=== PATIENT | female | born 1995 | race Caucasian/White ===

== ENCOUNTER 2023-09-07 09:47 | Outpatient (CLI) | payer MEDICAID, SELFPAY ==
--- NOTE | 2023-09-07 09:45 | CRLHL7_ITS ---
For Patients: As a result of the Century Cures Act, medical imaging exams and procedure reports are released immediately into your electronic medical record. You may view this report before your referring provider. If you have questions, please contact your health care provider. 3rd TRIMESTER TWIN GROWTH INDICATION: Third trimester scan, evaluate growth in a twin gestation. COMPARISON: Outside study dated 08/13/2023 TECHNIQUE: Real-time grayscale imaging of the twins was performed as well as color Doppler and spectral Doppler analysis of the umbilical arteries. FINDINGS: Sonographic imaging demonstrates a living twin intrauterine gestation. Twin A demonstrates a regular cardiac rate of 142 beats per minute. Twin A has a vertex position, maternal right. The placenta lies anterior. Amniotic fluid volume appears normal and the largest fluid pocket measures 5.5 cm. The estimated weight is 1330 gm which lies at the 12th percentile. BPD 38th percentile. HC 15th percentile. AC 12th percentile. FL 16 percentile. The HC/AC ratio measures 1.12 range (0.98-1.20). There is adequate diastolic blood flow within the umbilical artery. The S/D ratio measures 2.8. Normal gross body movements, tone and respiratory activity. Sonographic gestational age 29 weeks 3 days and sonographic due date 11/20/2023. Previously noted velamentous cord insertion not well visualized on today`s exam. Twin B demonstrates a regular cardiac rate of 145 beats per minute. Twin B has a breech position, maternal left. The placenta lies anterior. Amniotic fluid volume appears normal and the largest fluid pocket measures 6.9 cm. The estimated weight is 1240 gm which lies at the 5th percentile. BPD 28th percentile. HC 14th percentile. AC 5th percentile. FL 7th percentile. The HC/AC ratio measures 1.15 range (0.99-1.21). There is adequate diastolic blood flow within the umbilical artery. The S/D ratio measures 3.1. Normal gross body movements, tone and respiratory activity. Sonographic gestational age 29 weeks 1 day and sonographic due date of 08/23/2023. Marginal cord insertion previously mention is not well-visualized on the current study. IMPRESSION: Twin A growth at 12th percentile, previously at the 19th percentile. Twin B growth at the 5th percentile, previously 15th percentile. 03/17 biophysical profile bilaterally. Dictated by Vincent Santos MD @ 09/07/2023 12:26:23 PM (Electronically Signed)
== END 2023-09-07 09:48 | disposition home or self-care (01) ==
PROVIDERS: Visit Provider Obstetrics & Gynecology
DX: O30.003 Twin pregnancy, unspecified number of placenta and unspecified number of amniotic sacs, third trimester (principal)
CPT/HCPCS: 76816; 76819; 76820

== ENCOUNTER 2023-09-17 09:00 | Outpatient (CLI) | payer MEDICAID, SELFPAY ==
--- NOTE | 2023-09-17 09:15 | CRLHL7_ITS ---
For Patients: As a result of the Century Cures Act, medical imaging exams and procedure reports are released immediately into your electronic medical record. You may view this report before your referring provider. If you have questions, please contact your health care provider. INDICATION: Twins COMPARISON: 09/07/2023 TECHNIQUE: Real time magallon scale imaging of the twin was performed as well as color Doppler and spectral Doppler analysis of the umbilical artery. Without non-stress testing. FINDINGS: Sonographic imaging demonstrates a twin living intrauterine gestation. TWIN A: Fetus demonstrates a regular cardiac rate of 144 beats per minute. Fetus has a vertex maternal right position. The umbilical artery demonstrates adequate diastolic blood flow. The S/D ratio measures 2.6. The amniotic fluid volume appears normal and there is a single deepest pocket measurement of 3.1 cm. The fetus was active and demonstrated normal breathing movements. There was normal flexion and extension of the trunk and extremities. TWIN B: Fetus demonstrates a regular cardiac rate of 155 beats per minute. Fetus has a breech maternal left position. The umbilical artery demonstrates adequate diastolic blood flow. The S/D ratio measures 2.9. The amniotic fluid volume appears normal and there is a single deepest pocket measurement of 4.1 cm. The fetus was active and demonstrated normal breathing movements. There was normal flexion and extension of the trunk and extremities. IMPRESSION: TWIN A: Normal biophysical profile score of 8 out of 8. TWIN B: Normal biophysical profile score of 8 out of 8. Dictated by Vincent Santos MD @ 09/17/2023 1:47:02 PM (Electronically Signed)
== END 2023-09-17 09:01 | disposition home or self-care (01) ==
LOC: US 09:01
PROVIDERS: Visit Provider Obstetrics & Gynecology
DX: O30.049 Twin pregnancy, dichorionic/diamniotic, unspecified trimester (principal)
CPT/HCPCS: 76819; 76820

== ENCOUNTER 2023-09-21 09:19 | Outpatient (CLI) | payer MEDICAID, SELFPAY ==
--- NOTE | 2023-09-21 11:00 | US_ITS ---
INDICATION: DIAMNIOTIC/DICHORIONIC TWIN GESTATION. ULTRASOUND BIOPHYSICAL PROFILE WITH UMBILICAL ARTERY DOPPLER FOR BOTH TWINS. COMPARISON: 09/17/2023. TECHNIQUE: GRAYSCALE ULTRASOUND BIOPHYSICAL PROFILE BOTH FETUS IS. NONSTRESS TESTING. COLOR DOPPLER EVALUATION OF THE CORD. FINDINGS: TWIN A: NORMAL GROSS BODY MOVEMENTS, TONE AND RESPIRATORY ACTIVITY. AMNIOTIC FLUID IS NORMAL WITH SINGLE DEEPEST POCKET 5.3 CM. HEART RATE 134 BEATS PER MINUTE. POSITION MATERNAL LEFT BREECH. PLACENTA ANTERIOR. UMBILICAL ARTERY DOPPLER SD RATIO 2.7. TWIN B: NORMAL GROSS BODY MOVEMENTS, TONE AND RESPIRATORY ACTIVITY. ANTERIOR PLACENTA. HEART RATE 141 BEATS PER MINUTE. SINGLE DEEPEST POCKET 4.2 CM. VERTEX POSITION, MATERNAL RIGHT. UMBILICAL ARTERY SD RATIO 2.4. IMPRESSION: BIOPHYSICAL PROFILE 03/17 REGARDING BOTH FETUS IS. NORMAL END- DIASTOLIC VELOCITIES.
== END 2023-09-21 09:20 | disposition home or self-care (01) ==
LOC: US 09:19
PROVIDERS: Visit Provider Obstetrics & Gynecology
DX: O30.049 Twin pregnancy, dichorionic/diamniotic, unspecified trimester (principal)
CPT/HCPCS: 76819; 76820

== ENCOUNTER 2023-09-28 09:16 | Outpatient (CLI) | payer MEDICAID, SELFPAY ==
--- NOTE | 2023-09-28 09:15 | US_ITS ---
Final Report Patient: JESSA KAUFFMAN Facility:?[facility] Patient ID:?[id number] Site Patient ID:?[id number]. Site :?1995 Study:?US OB Pelvis OB BPP W/ UA DOPPLER-09/28/2023 11:35:21 AM Ordering Physician:?NAMITA MANCILLA M.D. Final Report: INDICATION: DI-DI TWINS COMPARISON: 09/21/2023 TECHNIQUE: Real time magallon scale imaging of the twins was performed as well as color Doppler and spectral Doppler analysis of the umbilical artery. Without non-stress testing. FINDINGS: Sonographic imaging demonstrates a twin living intrauterine gestation. TWIN A: Fetus demonstrates a regular cardiac rate of 165 beats per minute. Fetus has a vertex position. The umbilical artery demonstrates adequate diastolic blood flow. The S/D ratio measures 2.6. The amniotic fluid volume appears normal and there is a single deepest pocket measurement of 2.4 cm. The fetus was active and demonstrated normal breathing movements. There was normal flexion and extension of the trunk and extremities. TWIN B: Fetus demonstrates a regular cardiac rate of 149 beats per minute. Fetus has a breech position. The umbilical artery demonstrates adequate diastolic blood flow. The S/D ratio measures 2.6. The amniotic fluid volume appears normal and there is a single deepest pocket measurement of 4.9 cm. The fetus was active and demonstrated normal breathing movements. There was normal flexion and extension of the trunk and extremities. IMPRESSION: Twin A: Normal biophysical profile score of 8 out of 8. Twin B: Normal biophysical profile score of 8 out of 8. Dictated by Vincent Santos MD @ 09/29/2023 6:14:35 AM (Electronic Signature
== END 2023-09-28 09:17 | disposition home or self-care (01) ==
LOC: US 09:17
PROVIDERS: Visit Provider Obstetrics & Gynecology
DX: O30.049 Twin pregnancy, dichorionic/diamniotic, unspecified trimester (principal)
CPT/HCPCS: 76819; 76820

== ENCOUNTER 2023-10-08 13:02 | Outpatient (CLI) | payer MEDICAID, SELFPAY ==
--- NOTE | 2023-10-08 13:00 | US_ITS ---
Patient: JESSA KAUFFMAN Facility:?[facility] Patient ID:?[id number] Site Patient ID:?[id number]. Site :?1995 Study:?US-OB Pelvis TWIN BPP-10/08/2023 1:47:15 PM Ordering Physician:COOPER MANCILLA Final Report: INDICATION: Dichorionic diamniotic twins with IUGR TECHNIQUE: Conventional transabdominal two-dimensional magallon-scale ultrasound examination. COMPARISON: 09/28/2023 FINDINGS: There is are living dichorionic diamniotic twins with gestational age of 34 weeks 3 days by LMP and EDC of 11/16/2023. Twin A: Cephalic lie, on maternal right. The heart rate is measured at 141 beats per minute and the rhythm appears regular. The biophysical profile score is 8/8. The placenta is anterior. There is no evidence of previa. The amniotic fluid volume is within normal limits with single deepest pocket of 4.3 cm. Twin B: Breech lie, on maternal left. The heart rate is measured at 150 beats per minute and the rhythm appears regular. The biophysical profile score is 8/8. The placenta is anterior. There is no evidence of previa. The amniotic fluid volume is within normal limits with single deepest pocket 4.5 cm. IMPRESSION: 1. Living dichorionic diamniotic twins with gestational age of 34 weeks 3 days by LMP and EDC of 11/16/2023. 2. Biophysical profile score for both babies is 8/8. Dictated by Yohannes Vergara MD @ 10/09/2023 7:48:23 AM Signed by:?Yohannes Vergara MD @10/09/2023 7:48:23 AM (Electronic Signature)
== END 2023-10-08 13:03 | disposition home or self-care (01) ==
LOC: US 13:02
PROVIDERS: Visit Provider Obstetrics & Gynecology
DX: O30.033 Twin pregnancy, monochorionic/diamniotic, third trimester (principal); Z3A.34 34 weeks gestation of pregnancy
CPT/HCPCS: 76819

== ENCOUNTER 2023-10-13 14:19 | Outpatient (CLI) | payer MEDICAID, SELFPAY ==
[2023-10-14 15:50] LABS: Strep B DNA Probe Negative (Negative)
[2023-10-15 03:53] LABS: Strep B Susceptibility Needed? No
== END 2023-10-13 14:20 | disposition home or self-care (01) ==
LOC: NFLDREF 14:20
PROVIDERS: Visit Provider Obstetrics & Gynecology
DX: O30.043 Twin pregnancy, dichorionic/diamniotic, third trimester (principal); Z3A.35 35 weeks gestation of pregnancy
CPT/HCPCS: 76819; 76820; 87081; 87653

== ENCOUNTER 2023-10-15 10:43 | Outpatient (CLI) | payer MEDICAID, SELFPAY ==
--- NOTE | 2023-10-15 10:45 | US_ITS ---
Patient: JESSA KAUFFMAN Facility:?[facility] Patient ID:?[id number] Site Patient ID:?[id number]. Site :?1995 Study:?US-OB Pelvis BPP TWINS-10/15/2023 12:24:47 PM Ordering Physician:?Roxi Hughes Final Report: INDICATION: DI/DI TWINS HX IUGR COMPARISON: 10/13/2023 TECHNIQUE: Real time magallon scale imaging of the twin was performed as well as color Doppler and spectral Doppler analysis of the umbilical artery. Without non-stress testing. FINDINGS: Sonographic imaging demonstrates a twin living intrauterine gestation. TWIN A: Fetus demonstrates a regular cardiac rate of 142 beats per minute. Fetus has a vertex position. The umbilical artery demonstrates adequate diastolic blood flow. The S/D ratio measures 2.5. The amniotic fluid volume appears normal and there is a single deepest pocket measurement of 5.6 cm. The fetus was active and demonstrated normal breathing movements. There was normal flexion and extension of the trunk and extremities. TWIN B: Fetus demonstrates a regular cardiac rate of 149 beats per minute. Fetus has a breech position. The umbilical artery demonstrates adequate diastolic blood flow. The S/D ratio measures 1.9. The amniotic fluid volume appears normal and there is a single deepest pocket measurement of 7.2 cm. The fetus was active and demonstrated normal breathing movements. There was normal flexion and extension of the trunk and extremities. IMPRESSION: TWIN A: Normal biophysical profile score of 8 out of 8. TWIN B: Normal biophysical profile score of 8 out of 8. Dictated by Vincent Santos MD @ 10/15/2023 12:36:46 PM Signed by:?Vincent Santos MD @10/15/2023 12:36:46 PM (Electronic Signature)
== END 2023-10-15 10:44 | disposition home or self-care (01) ==
LOC: US 10:43
PROVIDERS: Visit Provider Obstetrics & Gynecology
DX: O30.043 Twin pregnancy, dichorionic/diamniotic, third trimester (principal); Z3A.35 35 weeks gestation of pregnancy
CPT/HCPCS: 76819; 76820

== ENCOUNTER 2023-10-22 10:28 | Inpatient (IN) | payer MEDICAID, SELFPAY ==
[2023-10-22] VITALS (8 sets, daily range): BP systolic 129–134; BP diastolic 61–75; PULSE 67–115; RESP 16; TEMP 36.6–37.2; O2SAT 98; BMI 30.1
[2023-10-22 10:01] LABS: Amnisure Rom* POSITIVE
--- NOTE | 2023-10-22 12:38 | P.OBHP_ITS ---
OB - H&P: HPI Labor/Induction History of Present Illness Time Seen by Provider: 10:45 Date Seen: 10/22/23 Chief Complaint: Maida is a 28 year old 3 para 1011 at 36 and 3/7 weeks gestation by LMP consistent with 1st trimester ultrasound, who presents with PROM at 6:00 a.m. this morning with clear amniotic fluid. Her has been complicated by / twins with twin a having a velamentous insertion of the cord, twin B having a marginal insertion of the cord in both twins having severe growth restriction at 3% or less as of 10/19/2023. Twin a also had elevated umbilical cord S/D ratio on 10/19/2023 of 3.43 (95% = 3.41). Twin a measured 2091 g, 4 lb 9 oz, twin B measured 2102 g 4 lb 10 oz with a 1% discordance. Twin B umbilical cord S/D ratio was 2.9. This ultrasound was performed at the [facility] in their [facility] office. See ultrasound results below. The patient states that she felt a pop and then had a a large gush of clear fluid this morning at 6:00 a.m. she called our clinic to see where she should go and we had recommended that she return to the [facility] as we watch it she had transferred care there but she presented to the [place] labor and delivery triage area. She declined Pitocin until 2:00 p.m. which is 8 hours after spontaneous rupture of membranes. She reports that she has felt a few contractions but nothing regular or painful. She understands that we will be delivering her twins in the operating room and umbilical cord clamping will happen immediately so that the twins can be stabilized. She understands that if the twins require NICU care they will be transferred. She understands that with growth restriction there is an increased risk of intolerance of labor requiring . She is planning on having an epidural. She and her spouse stated that the [facility] physician told them on Thursday that the babies are unlikely significantly growth restricted an are ?constitutionally small? and that there is little likelihood of them needing an ICU care. However, I reviewed records and they show that immediate induction of labor was recommended due to severe growth restriction with abnormal Doppler studies of twin a which the patient and her spouse declined. She was scheduled for an induction of labor at the [facility] today. I stressed the importance of safety of delivery for both the twins to promote healthy outcome for all including herself. I would not recommend delayed cord clamping for either twin nor for placing either twin on the patient's chest immediately. The patient had discussed delivering on all 4's for both twins and I reviewed that this would be extremely difficult exposure sleeve for breech extraction of twin B as well as for the fact that the operating room bed does not have as much room as beds in our delivery rooms and she will have an epidural which makes all 4 positioning challenging. The patient's past medical, surgical, social and family histories were reviewed in her electronic medical record. Chief complaint: Maternity Narrative: Maida Green is a 28 year old female Specific Issues/Plans G3 P 1011 Transfer of obstetric care at 30 weeks gestation. Records received. labs: Blood type O positive, antibody screen negative, hemoglobin 13.7, rubella immune, HepBsAg NR, HIV heg, HepC neg, 1 h GTT 84 1. Diamniotic/dichorionic twin gestation * Has seen MFM at [facility] 2. IUGR of both twins: * Twin A was diagnosed with growth restriction 07/27/23. EFW was 11%, AC 5%. On 08/05/23, UA dopplers were both normal and BPP for both babies was 8/8. However, repeat US for growth at 26 3/7 weeks was normal; EFW 19%, AC 11%. * Growth US q3 weeks. Next scanned scheduled at [place] with MFM at 34 weeks gestation: Twin A - maternal right, vtx, EFW 1932 g (8%), MVP 2.29 cm, BPP 8/8, velamentous cord insertion. Twin B - maternal left, BREECH, EFW 1782 g (3%), AC 2%, MVP 5.5 cm, BPP 8/8, marginal cord insertion. BOTH BABIES GROWTH RESTRICTED. * TWICE Weekly BPP, with Dopplers weekly, in [place]. * Delivery at 36 0/7-37 0/7 (37 0/7 weeks at the latest) * Betamethasone given 10/15/23, repeat 10/16/23 3. Velamentous cord insertion twin A, Marginal cord insertion twin B 4. Twin B with mild dilation of right renal pelvis at 4 mm (urinary tract dilation A1) at 24 weeks. Ultrasounds: * 10/19/23: Twin A, vertex, maternal right, EFW 2091 g, 4 lb 9 oz, 3.1%. AC< 2%. SDP 2.89 cm. Umbilical cord S/D: 3.34 = high (95% = 3.41) BPP 8/8. * 10/19/2023: Twin B, breech, maternal left, EFW 2102 g 4 lb 10 oz, 3%. SDP 4.96 cm BPP 8/8. Umbilical cord SD ratio: 2.9 = normal * 10/05/23: Twin A, on maternal right, vertex, EFW 1932g at 8%ile, normal UA doppler, 8/8 BPP. Twin B on maternal left side, breech, EFW 1782g at 3%ile with AC 2%ile, normal UA doppler, 8/8 BPP. * 09/07/23: Twin A, on the maternal right, vertex presentation, heart rate 142 beats per minute, SDP 5.5 cm, BPP 8/8, umbilical artery S/D 2.8, BPD 38%, HC 15%, AC 12%, FL 16%, EFW 2 lb 15 oz (12.4%), previously seen velamentous cord insertion not well visualized today. Twin B, on the maternal left, breech presentation, heart rate 145 beats per minute, SDP 6.9 cm, BPP 8/8, umbilical artery S/D 3.1, BPD 28%, HC 14%, AC 5%, FL 7%, EFW 2 lb 12 oz (5.3%), previously seen marginal cord insertion not well visualized today. * 08/13/23: Twin A. BPP 8/8, VMP 3.9 cm. EFW 19%, AC 11%. Twin B. EFW 15% ,AC 19%. Head circumference 6%. BPP 8/8, MVP 3.4 cm. 2% intertwin discordance. Repeat US was recommended for growth in 3-4 weeks. * 08/05/23: Twin A. Breech, maternal right, anterior placenta, MVP 4.5, BPP 8/8, UA doppler normal. Twin B: cephalic, anterior placenta, MVP 4.9 cm, R renal pyelectasis 4 mm, BPP 8/8. * 07/27/23: Twin A. Breech, maternal right. EFW 11%, AC 5%. UA doppler normal, MVP 6.5. Twin B: transverse, EFW 15%, MVP 5.9 cm. Mild dilation of right renal pelvis at 4 mm. * 06/29/23: Twin A. Velamentous cord insertion. Normal anatomy. Twin B: Marginal cord insertion, normal anatomy, suboptimal cardiac views. * 06/03/23: Twin A: cephalic, maternal right. EFW 72%, AC 37%. Twin B: cephalic, maternal left. EFW 42%, AC 33%. 10% discordance Meds Home Medications and Allergies Home Medications Medication Instructions Recorded Confirmed Type PNV no.151-iron 27 mg-folic 800 cap PO QDAY 09/07/23 10/22/23 History mcg-omega3 260 pe-nfb-lie-fish capsule ( Multi-DHA (with vitamin K)) aspirin 81 mg capsule 81 mg PO QDAY 09/07/23 10/22/23 History ferrous sulfate 325 mg (65 mg 325 mg PO QDAY 10/08/23 10/22/23 History iron) tablet (Feosol) Allergies Allergy/AdvReac Type Severity Reaction Status Date / Time cefprozil Allergy Mild Unknown Verified 10/22/23 08:02 OB - H&P: Exam Physical Exam: Vital signs: Temp Pulse BP Pulse Ox 98.6 F 96 129/75 98 10/22/23 09:29 10/22/23 09:29 10/22/23 09:29 10/22/23 09:08 Narrative: GENERAL APPEARANCE: Pleasant, , well-groomed woman in no acute distress. VITAL SIGNS: as noted in nursing notes HEAD: Normocephalic, atraumatic. THYROID: no masses, nodularity, tenderness or enlargement. LUNGS: Clear to auscultation bilaterally without wheezes, rales or rhonchi. HEART: Regular rate and rhythm with normal S1 and S2. No gallop, rub or murmur. ABDOMEN: Gravid. Soft, nontender, nondistended, with normal bowels sounds throughout. HEART TONES: Twin a: 140s and reactive, category 1. Twin B: 150s and reactive, category 1. PRESENTATION: Twin a: Vertex on maternal right. Twin B: Mikel breech, maternal left by bedside ultrasound. SVE per nursin cm/ 20 %/ -3/soft/ mid. Lindsay score: 4 EXTREMITIES: No cyanosis, clubbing, or edema. No varicosities. NEUROLOGIC: Normal gait and balance. Normal deep tendon reflexes at bilateral patella 2+/2, equal without clonus. PSYCHIATRIC: alert and oriented x3. Normal speech pattern, eye contact and affect. SKIN: Warm, dry, and well perfused. Good turgor. No lesions, nodules or rashes. . OB - Problem Based A/P Additional Plan (1) premature rupture of membranes (PPROM) with unknown onset of labor: Status: Acute Plan: Start Pitocin at 2:00 p.m. today on 10/22/2023 GBS negative Type and screen will be sent when her IV is started. Planning epidural for labor analgesia. (2) IUGR (intrauterine growth restriction) affecting care of mother: Status: Acute (3) Dichorionic diamniotic twin gestation: Status: Acute
[2023-10-22] MEDS: LACTATED RINGERS 1000 ML 1,000 ML 125 ML IV (14:35)
[2023-10-22] MEDS: OXYTOCIN 30 unit/500 ML in NS 30 UNIT/500 ML BAG IVPB (14:35)
[2023-10-22 14:51] LABS: Basophils Absolute Auto 0.04 K/uL (0.00-0.30); Basophils Percent Auto 0.4 % (0.0-3.0); Eosinophils Absolute Auto 0.07 K/uL (0.00-0.50); Eosinophils Percent Auto 0.7 % (0.0-7.0); Hematocrit 38.8 % (33.0-51.0); Hemoglobin* 13.4 gm/dL (12.0-16.0); Immature Granulocytes Abs Auto 0.19 K/uL (0.00-0.30); Lymphocytes Percent Auto 16.7 % (20-44); Mean Corpuscular HGB Conc 35 gm/dL (32-36); Mean Corpuscular Hemoglobin 29 pg (26-34); Mean Corpuscular Volume 83 fL (80-100); Monocytes Percent Auto 8.6 % (0.0-11.0); Neutrophils Absolute Auto 6.93 K/uL (1.7-7.0); Neutrophils Percent Auto 71.6 % (42.0-72.0); Platelet Count* 171 K/uL (140-440); RDW Coefficient of Variation % 13.9 % (11.5-15.5); Red Blood Count 4.66 m/uL (4.00-5.20); White Blood Count* 9.68 K/uL (4.50-11.00)
[2023-10-22 14:54] LABS: Slide Review Reflex No
[2023-10-22] MEDS: LACTATED RINGERS 1000 ML 1,000 ML 119 ML IV (22:29)
[2023-10-23] VITALS (45 sets, daily range): BP systolic 98–141; BP diastolic 51–85; PULSE 60–139; RESP 16–18; TEMP 36.5–36.9; O2SAT 96–99
--- NOTE | 2023-10-23 01:23 | PM.OBPNL ---
Subjective Time Seen by Provider: 01:00 Date Seen: 10/23/23 Narrative: Subjective: Patient is more on comfortable with contractions. Pitocin: 11 milliunits/minute. Vital signs: Per electronic medical record. EFM: Twin A: Baseline 140, positive accelerations, negative decelerations, moderate variability, [place]. Category 1. Twin B: Baseline 150, positive accelerations, negative decelerations, moderate variability, [place]. Category 1. [place]: Contractions every 2 minutes. SVE: 1.5 cm/80 %/0/anterior/soft. Lindsay score: 10 Assessment: 57-uoqy-jel-year-old 2 para 1001 at 36 weeks 4 days gestation undergoing induction of labor after Pprom Plan: 1. Continue Pitocin per labor induction protocol. 2. Considering epidural for labor analgesia Objective Vital Signs: Last Vital Signs Temp 97.8 F 10/22/23 22:53 Pulse 73 10/23/23 01:03 Resp 16 10/22/23 18:00 BP 129/74 10/23/23 01:03 Pulse Ox 99 10/23/23 00:05
[2023-10-23] MEDS: LIDOCAINE 2% (PF) 5 ML VIAL EPIDURAL (05:18)
[2023-10-23] MEDS: ROPIVACAINE 0.2% 100 ml 100 ML 12 MG EPIDURAL (05:18)
--- NOTE | 2023-10-23 05:25 | P.ANBPRC_ITS ---
[facility] Social History Narrative: She lives in [place] with her and child. 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 She denies tobacco, alcohol and recreational drug use. What is your current living situation?: I presently have a place to live Problems where you live: no known problems In the past 12 months, utilities in danger of being shut off: no In past 12 months, lack of transportation kept you from medical appts, meetings, work, or getting things needed for daily living: no In the past 12 mos, have been you worried that your food would run out before you had money to buy more?: never true In the past 12 mos, the food you bought just didn't last and you didn't have money to buy more?: never true Smoking Status: Never smoker How often does anyone, including family, friends and others, physically hurt you : never How often does anyone, including family, friends and others, insult or talk down to you: never How often does anyone, including family, friends and others, threaten you with harm: never How often does anyone, including family, friends and others, scream or curse at you: never Little interest or pleasure in doing things: not at all Feeling down, depressed, or hopeless: not at all Meds Home Medications and Allergies Home Medications Medication Instructions Recorded Confirmed Type PNV no.151-iron 27 mg-folic 800 cap PO QDAY 09/07/23 10/22/23 History mcg-omega3 260 kp-kxq-ijg-fish capsule ( Multi-DHA (with vitamin K)) aspirin 81 mg capsule 81 mg PO QDAY 09/07/23 10/22/23 History ferrous sulfate 325 mg (65 mg 325 mg PO QDAY 10/08/23 10/22/23 History iron) tablet (Feosol) Allergies Allergy/AdvReac Type Severity Reaction Status Date / Time cefprozil Allergy Mild Unknown Verified 10/22/23 08:02 Results Labs Labs: Laboratory Results - last 24 hr 10/22/23 10/22/23 09:34 14:40 WBC 9.68 RBC 4.66 Hgb 13.4 Hct 38.8 MCV 83 MCH 29 MCHC 35 RDW Coeff of Radha 13.9 Plt Count 171 Neut % (Auto) 71.6 Lymph % (Auto) 16.7 L Riley % (Auto) 8.6 Eos % (Auto) 0.7 Baso % (Auto) 0.4 Neut # (Auto) 6.93 Lymph # (Auto) 1.60 Riley # (Auto) 0.80 Eos # (Auto) 0.07 Baso # (Auto) 0.04 Abs Immat Gran (auto) 0.19 Imm/Tot Granulo (auto) 2.0 Membrane Rupture POSITIVE Blood Type O Positive Antibody Screen NEGATIVE Vital Signs Vital Signs: Last Vital Signs Temp 98.5 F 10/23/23 03:54 Pulse 89 10/23/23 05:23 Resp 16 10/23/23 03:54 BP 112/66 10/23/23 05:23 Pulse Ox 98 10/23/23 05:07 Weight: 84.623 kg Height: 167.64 cm Anesthesia Procedures Epidural Insertion Patient Location: OB Start Time: 04:30 Stop Time: 05:30 Start Date: 10/23/23 Stop Date: 10/23/23 Reason for Block: primary anesthetic Patient Position: sitting Performed By: Ike Molina Preanesthetic Checklist: IV checked, risks and benefits discussed, surgical consent, monitors and equipment checked, pre-op evaluation, timeout performed and anesthesia consent Prep: chlorhexidine gluconate Monitoring: blood pressure monitoring, diagnostic cardiac sonographer, continuous pulse oximetry and heart rate Approach: midline Vertebral Space: lumbar (1-5) Needle Type: Tuohy needle Injection Technique: continuous catheter Needle gauge: 17 Needle Length (cm): 10 cm Needle Insertion Depth (cm): 6 Catheter Gauge: 19 Catheter Type: multi-orifice Catheter at skin depth (cm): 12 Test Dose Result: negative and lidocaine 1.5% with epinephrine 1 to 200,000 Events: other
[2023-10-23] MEDS: LACTATED RINGERS 1000 ML 1,000 ML 125 ML IV (05:45)
[2023-10-23] MEDS: ONDANSETRON 2 MG/ML inj 4 MG IV (06:07)
--- NOTE | 2023-10-23 08:41 | W.ANESCHARGE ---
Anesthesia Charges Start Date/Time Anesthesia Start Date: 10/23/23 Anesthesia Start Time: 08:01 Stop Date/Time Anesthesia Stop Date: 10/23/23 Anesthesia Stop Time: 08:33 Summary Emergency: [facility] [employer]
--- NOTE | 2023-10-23 09:31 | W.PM.VAGDEL1 ---
Procedure Delivery date: 10/23/23 Procedure Done: Global (Breech extraction of second coming twin) Procedure Details: Procedures Operation Date: 10/23/23 08:15 <No data on this case meets the specified criteria> Events: Labor Induction and Other (Dichorionic diamniotic twin gestation, severe growth restriction of both twins, abnormal UA doppler of twin A ) Intrapartal Events: ROM >18 Hours Delivery monitor: external FHT Route of delivery: breech extraction Episiotomy description: None Laceration description: None Estimated blood loss (mL): 150 Anesthesia type: Epidural Disposition: floor Complications: Precipitous delivery of twin A prior to my arrival Narrative: Ms. Green is a 28yo who was ongoing IOL in the setting of PPROM. was complicated by dichorionic diamniotic twin gestation, severe growth restriction of both twins, abnormal UA dopplers of twin A. She had been followed by [facility] and [facility] MFM, recommended delivery at 36 weeks given severe growth restriction and abnormal dopplers but had rather decided to proceed with expectant management. She PPROMed on 10/22/23 at 0555. Started pitocin at 1430 on 10/23/23. Last exam at 0620 was . I was contacted by clinical operations leader at [phone] by phone that an parent partner was needed RUPA for an unplanned delivery. weight caller [employer] Dial Inspector was unavailable due to an ongoing surgical case. I was in route for my planned Clinic, notified the team that I could arrive to the hospital in about 5 minutes. Requested the patient be relocated to the OR, where I would present as soon as possible. I subsequently called the center as I was walking in for further details, who reported Twin A had spontaneously delivered in her L&D room a few minutes ago. I later learned that Twin A was noted to have been off the monitor beginning at 0724. Bedside RNs were having difficulty getting Twin A back on the monitor, where they continued to identified Twin B via the external monitor. They had recommended position changes and FSE placement, where Maida declined and favored discussing the risks/benefit with her leather belt loop cutter and then . When she eventually agreed after they conveyed the emergent need for assessment of Twin A for safety, the head was noted to be delivered. and subsequently delivered. When I arrived on the unit at 0800, I immediately presented to Maida's room where Twin B was on the external monitor with a heart rate in the 140s with moderate variability. Primary nurse and Leisa Amaya CNM were at the bedside and had completed delivery of Twin A. The umbilical cord have been previously clamped and cut. A cervical exam was performed revealing only a bulging bag of water and no palpable presenting part. Immediate bedside US was performed confirming breech malpresentation of twin B. I recommended emergent relocation to the operating room for possible breech extraction vs primary delivery. I relayed my concerns to Maida in terms of the time between delivery of the twins, where it's possible that her cervix may have reduced requiring primary . If breech delivery is attempted, I relayed increased possibility that we may need to complete Durhssen's incisions or utilize Piper forceps for safe delivery of twin B. Risks/benefits of these methods were reviewed en route to the OR where patient affirmed understanding. Patient was transferred to OR table and legs supported with yellow fin stirrups. Twin B's heart rate was confirmed to the in the 130s-140s. Cervical exam was completed, where cervix palpated 8cm dilated with bulging bag of water. With onset of contraction, Maida reported the need to push and that her baby was coming. Exam was consistent with likely complete breech presentation, descending with maternal expulsive efforts. A foot was grasped through the intact back of water, gently brought down to vaginal introitus and held gently. I then followed the presenting leg up to the hips, where the foot could be grasped easily and brought to the introitus during which time SROM occurred. With gentle downward traction, the entirety of the lower extremities were delivered and abdomen to mid-way between the umbilicus and axilla in the sacrum right position. Further descent was not initially noted, where the trunk delivered up to mid-way between the umbilicus and axilla. I attempted to deliver the anterior arm, where a nuchal arm was identified. The body was rotated in attempt to alleviate nuchal arm . Dr. Turner presented to the bedside at this time and attempted to deliver the arm as well. We felt station was too high to successfully deliver the arm, where we advised for a strong push at which point descent to the axilla was noted and the arm was swept free with Loveset maneuver by Dr. Turner. We then rotated the body 180 degrees and swept to deliver the second arm without difficulty. Maternal pushing effort was encouraged again, combined with suprapubic pressure and gentle downward traction resulted in delivery of the head. Baby was brought to the maternal abdomen, where immediate cord clamping and cutting was performed. Baby B was transferred to Pediatrics team (Dr. Jacobs). The umbilical cord of twin B was noted to short. A cord segment for each twin was clamped, cut and handed off for cord gas segment. Active management of the third stage was completed, with IV Pitocin and gentle cord traction. The placenta was noted to be delivered into the proximal vagina but failed to deliver with maternal expulsive effort. The umbilical cord of twin B was noted to be sheering, but not avulsed - with known velamentous cord insertion on prior US. I proceeded to manual extraction of the placenta which delivered intact at 0820. Bedside US performed in the transverse and sagittal views, confirmed complete removal of the placenta. Images printed for medical record. Perineum and vagina were inspected, and noted to be intact. No repair was required. Excellent uterine tone and hemostasis was noted, with total EBL of 150cc for the component of care for which I was present. All counts were correct. Mother and infants in stable condition following the .? Twin A: - weight: 1950g - APGARs at 1 and 5 minutes were 8 and 9 respectively Twin B: - weight: 1860g - APGARs at 1 and 5 minutes were 1 and 9 respectively After delivery, the placenta was inspected and noted to be intact but abnormal. The placentas had fused, where Twin As placenta appeared significantly larger than Twin Bs. In addition, velamentous cord insertion was noted for both twins. Specifically, Twin Bs velamentous cord was noted to have partially avulsed off the placental insertion site which was noted to implanted on the lateral edge of the placenta. Recommend pathologic evaluation of the placenta per unit policy in the setting of multi- gestation and severe growth restriction. Patient's leather belt loop cutter subsequently removed the placentas from the facility, given their plan to proceed with of encapsulating the placentas. A formal debrief with Duncan was completed following delivery, where all questions were answered. Maida and Zane expressed appreciation for safe arrival of their babies but acknowledged the urgency of the situation was not in their plan. I did explain my medical recommendation for formal pathologic evaluation and why this assessment is important given her significant comorbidities. If declined, I did request temporary return of the placenta so I could briefly complete a more detailed visual inspection and obtain images for her medical record. They noted they would ask their leather belt loop cutter, but the placenta was not subsequently returned. [place] Infant A Infant Gender: Female presentation: vertex Placental Delivery: Manual Removal Cord Description Comment: Velamentous cord insertion [place] B Gender: Female presentation: full/complete breech Placental Delivery: Manual Removal Cord Description Comment: Velamentous cord insertion, marginal cord insertion, partial avulsion
--- NOTE | 2023-10-23 09:31 | W.PM.OBVAGDE ---
OB Procedure Vag Delivery Mother Details Mother Details: The patient is a 28 year-old, 3, Para 1, admitted on 10/22/23 at 36 4/7 gestation. : 3 Para: 2 Weeks Gestation: 36.4 Admission Date: 10/23/23 Additional Details Amniotic Membrane Status: SROM Heart: heart tones were difficult to obtain of Twin A during the period prior to delivery. The patient was recommended an FSE to better monitor Twin A. Patient initially declined then agreed. Delivery Details Delivery Date: 10/23/23 Delivery Time: 07:50 (Twin A) Delivery Details: RN had attempted to monitor Twin A with external monitors with difficulty. Patient had agreed after some time to allow placement of FSE. As RN was getting items ready to do this, I knocked to see if help was needed. RN declined. As I started to walk away, I heard them yell, Baby's coming! I entered the room to see Baby A precipitously deliver into RN's hands at 0750. I quickly gloved and asked for them to call for assistance and see if we could get provider from OR. Baby was stimulated by RN. I instructed for a clamp and scissors. Cord was clamped and cut at about 30 seconds of life then taken to the warmer. OB was called for delivery, primary OB provider was occupied in the OR with another patient at time of event. I stood at bedside while RN was able to obtain heart rate of Twin B. Patient was instructed to breath through contractions until OB arrived. Ultrasound was brought bedside. Dr. Saucedo arrived shortly after to assume care. Patient was then assessed and decision was made to transfer Mom to OR for attempted breech extraction with possibility of needing a urgent c/s if unable to deliver. Please see her delivery note for delivery of Twin B. Additional Details Shoulder Dystocia: No Event Summary Status: See Dr. Saucedo's Delivery note for additional information on delivery of Twin B, placentas, and recovery.
--- NOTE | 2023-10-23 09:35 | SUR.OPER ---
THIS STATOR CONNECTOR WAS TOLD BY DR. BURGOS TO OPEN ALL ITENS FOR A POSSIBLE C/SECTION (WHICH THIS WRTER DID WITH THE HELP OF THE SPEEDBOAT DRIVER). THIS PROCEDURE WAS ONLY FOR THE IMPENDING OF BABY B. BABY B WAS DELIVERED VAGINALLY BY DR. BURGOS.
--- NOTE | 2023-10-23 09:42 | SUR.OPER ---
THIS DRAPERY HEAD FORMER COLLECTED THE ARTIERAL AND VENOUS BLOOD GASES FROM BABY B'S UMBILICAL CORD. BOTH SPECIMENS WERE GIVEN TO SANDEEP PARDO RN AND SHE INFORMED THIS DRAPERY HEAD FORMER THAT SHE WOULD REGISTER THE BABY AND SEND BOTH SPECIMENS TO THE LABL
--- NOTE | 2023-10-23 10:45 | SUR.OPER ---
BABY A WAS DELIVERED IN THE CENTER (SEE CHARTING FROM OB RN) BEFORE BABY B.
--- NOTE | 2023-10-23 10:50 | W.ANESCHARGE ---
Anesthesia Charges Start Date/Time Anesthesia Start Date: 10/23/23 Anesthesia Start Time: 08:01 Stop Date/Time Anesthesia Stop Date: 10/23/23 Anesthesia Stop Time: 08:33 Summary Emergency: MDA
--- NOTE | 2023-10-23 12:35 | PM.ANPOST ---
Post Anesthesia Note Post Anesthesia Note Patient seen: Inpatient Respiratory Status: adequate Cardiovascular Status: adequate Mental Status: baseline Pain: adequate Temp: baseline Anesthetic awareness: N/A Complications: none Follow care: none
--- NOTE | 2023-10-23 17:10 | P.DS_ITS ---
DS: Providers Provider Date Seen: 10/23/23 Date of admission: 10/22/23 10:28 Primary care physician: Not a Local Provider Admitting Clinician: Heidi Roy MD Attending Physician on discharge: Heidi Roy MD Date of Discharge: 10/23/23 DS: Diagnosis Discharge Diagnosis (1) Dichorionic diamniotic twin gestation: Status: Acute (2) Vaginal delivery: Status: Acute (3) Breech extraction, delivered: Status: Acute Exam Narrative: Exam Narrative: General: Pleasant, no acute distress Heart: Regular rate and rhythm, no murmur or gallop Lungs: Clear to auscultation bilaterally Abdomen: Soft, nontender, fundus at umbilicus Lower extremities: No edema or erythema Const: Vital Signs, click to edit/add: Vital Signs - 24 hr 10/22/23 18:00 10/22/23 20:17 10/22/23 20:17 Temperature 98.3 F 98.5 F Pulse Rate 67 Pulse Rate [Blood Pressure Cuff] Respiratory Rate 16 Blood Pressure 131/61 Blood Pressure [Ri ght Arm] Pulse Oximetry Oxygen Delivery Me thod 10/22/23 21:20 10/22/23 22:53 10/23/23 00:05 Temperature 98.4 F 97.8 F Pulse Rate Pulse Rate [Blood Pressure Cuff] Respiratory Rate Blood Pressure Blood Pressure [Ri ght Arm] Pulse Oximetry 99 Oxygen Delivery Me thod 10/23/23 00:32 10/23/23 01:03 10/23/23 01:36 Temperature 98.5 F Pulse Rate 86 73 Pulse Rate [Blood Pressure Cuff] Respiratory Rate Blood Pressure 141/81 H 129/74 Blood Pressure [Ri ght Arm] Pulse Oximetry Oxygen Delivery Nm thod 10/23/23 02:17 10/23/23 02:18 10/23/23 03:54 Temperature 97.8 F Pulse Rate 73 71 Pulse Rate [Blood Pressure Cuff] Respiratory Rate Blood Pressure 106/58 L 112/65 Blood Pressure [Ri ght Arm] Pulse Oximetry Oxygen Delivery Me thod 10/23/23 03:54 10/23/23 05:02 10/23/23 05:07 Temperature 98.5 F Pulse Rate Pulse Rate [Blood Pressure Cuff] Respiratory Rate 16 Blood Pressure Blood Pressure [Ri ght Arm] Pulse Oximetry 98 98 Oxygen Delivery Me thod 10/23/23 05:09 10/23/23 05:12 10/23/23 05:13 Temperature Pulse Rate 67 139 H 81 Pulse Rate [Blood Pressure Cuff] Respiratory Rate Blood Pressure 132/76 140/63 H 129/74 Blood Pressure [Ri ght Arm] Pulse Oximetry Oxygen Delivery Me thod 10/23/23 05:15 10/23/23 05:18 10/23/23 05:19 Temperature Pulse Rate 78 92 92 Pulse Rate [Blood Pressure Cuff] Respiratory Rate Blood Pressure 127/71 122/67 125/68 Blood Pressure [Ri ght Arm] Pulse Oximetry Oxygen Delivery Me thod 10/23/23 05:21 10/23/23 05:23 10/23/23 05:25 Temperature Pulse Rate 87 89 96 Pulse Rate [Blood Pressure Cuff] Respiratory Rate Blood Pressure 123/65 112/66 118/63 Blood Pressure [Ri ght Arm] Pulse Oximetry Oxygen Delivery Nm thod 10/23/23 05:32 10/23/23 05:38 10/23/23 05:43 Temperature Pulse Rate 74 111 H 85 Pulse Rate [Blood Pressure Cuff] Respiratory Rate Blood Pressure 117/62 123/81 114/58 L Blood Pressure [Ri ght Arm] Pulse Oximetry Oxygen Delivery Me thod 10/23/23 05:48 10/23/23 06:06 10/23/23 06:20 Temperature Pulse Rate 86 75 60 Pulse Rate [Blood Pressure Cuff] Respiratory Rate Blood Pressure 136/70 104/57 L 105/57 L Blood Pressure [Ri ght Arm] Pulse Oximetry Oxygen Delivery Nm thod 10/23/23 06:31 10/23/23 06:35 10/23/23 06:50 Temperature 97.7 F Pulse Rate 61 62 Pulse Rate [Blood Pressure Cuff] Respiratory Rate Blood Pressure 106/59 L 103/57 L Blood Pressure [Ri ght Arm] Pulse Oximetry Oxygen Delivery Me thod 10/23/23 07:06 10/23/23 07:21 10/23/23 07:36 Temperature Pulse Rate 61 73 60 Pulse Rate [Blood Pressure Cuff] Respiratory Rate Blood Pressure 98/51 L 104/54 L 98/54 L Blood Pressure [Ri ght Arm] Pulse Oximetry Oxygen Delivery Me thod 10/23/23 07:49 10/23/23 07:51 10/23/23 08:51 Temperature Pulse Rate 71 133 H 75 Pulse Rate [Blood Pressure Cuff] Respiratory Rate Blood Pressure 105/56 L 112/66 126/85 Blood Pressure [Ri ght Arm] Pulse Oximetry Oxygen Delivery Me thod 10/23/23 09:04 10/23/23 09:25 10/23/23 09:34 Temperature Pulse Rate 67 63 71 Pulse Rate [Blood Pressure Cuff] Respiratory Rate Blood Pressure 121/79 102/70 109/76 Blood Pressure [Ri ght Arm] Pulse Oximetry Oxygen Delivery Me thod 10/23/23 09:49 10/23/23 10:04 10/23/23 10:19 Temperature Pulse Rate 65 65 77 Pulse Rate [Blood Pressure Cuff] Respiratory Rate Blood Pressure 113/76 112/62 115/62 Blood Pressure [Ri ght Arm] Pulse Oximetry Oxygen Delivery Me thod 10/23/23 10:34 10/23/23 10:49 10/23/23 11:30 Temperature 98.3 F Pulse Rate 86 75 Pulse Rate [Blood Pressure Cuff] 83 Respiratory Rate 16 Blood Pressure 115/69 111/59 L Blood Pressure [Ri ght Arm] 114/62 Pulse Oximetry Oxygen Delivery Me thod Room Air 10/23/23 11:33 10/23/23 16:00 Temperature 97.8 F Pulse Rate 83 Pulse Rate [Blood Pressure Cuff] 88 Respiratory Rate 16 Blood Pressure 114/62 Blood Pressure [Ri ght Arm] 116/73 Pulse Oximetry Oxygen Delivery Me thod Room Air OB - DS: Summary Hospital Course Hospital Course: Maida is a 28-year-old G3 now P 2-0-1-3 woman who presented on 10/22/2019 for get 36 weeks, 3 days gestation after spontaneous rupture membranes at 6:00 a.m.. Her cervix was unfavorable. was complicated by severe growth restriction of both twins, with a newly elevated S/D ratio of twin A. Twin A was noted to have velamentous cord insertion, and twin B a marginal cord insertion. A She had Pitocin for induction of labor. She had epidural for management of discomfort during labor. She did have prolonged rupture of membranes, greater than 24 hours. She ultimately had a precipitous delivery of twin A. She had breech extraction for twin B. she required manual extraction of the placenta. She was given ampicillin thereafter for prophylaxis against infection. Both twins were confirmed to be quite small for gestational age, and are to be transferred. She requests discharge to accompany her infants. She is intending to breast feeding. the patient has done well. Peripartum Data Procedures: Procedures Operation Date: 10/23/23 08:15 Actual Procedure Side Surgeon p VAGINAL OF SECOND BABY (BABY B). Not Applicable Melissa Saucedo MD Infant A Gender: Female Infant B Gender: Female Time Spent with Patient Time attestation: Total time spent providing and/or coordinating discharge services: Discharge Plan Discharge Disposition: Home, Self-Care Date of Admission: 10/22/23 10:28 Attending Provider on Discharge: Winter Rust Primary Care Provider: Provider,Not a Local Condition: Stable Anticipated Discharge Date/Time: 10/23/23 17:45 Discharge Medications: New acetaminophen 500 mg Tablet 1,000 mg PO Q6H PRNQty: 0 0RF docusate sodium 100 mg Capsule 100 mg PO DAILY Qty: 30 1RF ibuprofen 600 mg Tablet 600 mg PO Q6H PRNQty: 0 0RF Lanolin (HPA) 100 % Cream 1 applic topical Q1H PRNQty: 0 0RF Continued ferrous sulfate [Feosol] 325 mg (65 mg iron) tablet 325 mg PO QDAY Multi-DHA(with vit K) 27 mg iron-800 mcg-260 mg capsule PO QDAY Discontinued aspirin 81 mg capsule 81 mg PO QDAY Discharge Orders: Discharge Order (Routine); Ordered 10/23/23 Ordered By: Winter Rust Patient Education: OB Vaginal/Bottle Feeding Activity Detail: nothing per vagina until bleeding stops Discharge Diet: Regular Follow Up Appointments: Provider,Not a Local [Primary Care Provider] - Winter Rust MD [Staff Physician] - Forms: [employer] Info Instructions
[2023-10-23] MEDS: IBUPROFEN 600 MG TABLET PO (17:41)
[2023-10-23] MEDS: AMPICILLIN 2 GM in 0.9 % SODIUM CHLORIDE Mini-bag 100 ML IVPB (17:48)
[2023-10-23] MEDS: ACETAMINOPHEN 500 MG TABLET 1000 MG PO (20:49)
[2023-10-25 02:07] LABS: Rapid Plasma Reagin (RPR) Non Reactive (Non Reactive)
== END 2023-10-23 21:10 | disposition home or self-care (01) | DRG 807 ==
LOC: OB OUT 10:29 → OB 10:29
PROVIDERS: Obstetrics & Gynecology; Admitting Provider Obstetrics & Gynecology; Visit Provider Obstetrics & Gynecology
PROC: 10E0XZZ Delivery of Products of Conception, External Approach (ICD-10-PCS; CPT 59514; principal; 2023-10-23 08:00)
DX: O30.043 Twin pregnancy, dichorionic/diamniotic, third trimester (principal); Z37.2 Twins, both liveborn; O42.013 Preterm premature rupture of membranes, onset of labor within 24 hours of rupture, third trimester; O36.5930 Maternal care for other known or suspected poor fetal growth, third trimester, not applicable or unspecified; O32.1XX0 Maternal care for breech presentation, not applicable or unspecified; Z3A.36 36 weeks gestation of pregnancy
CPT/HCPCS: 01960; 01967; 36415; 76815; 84112; 85025; 86592; 86850; 86900; 86901; 99140; A9270; J0290; J2371; J2405; J2795; J3010; J7120

== ENCOUNTER 2024-10-06 09:10 | Outpatient (CLI) | payer MEDICAID, SELFPAY ==
--- NOTE | 2024-10-06 15:55 | W.PM.LAC.MC ---
Consult Note - Mom Date of Visit Date of visit: 10/06/24 Reason for consultation: Breast/Nipple Issue (nipple pain, small cut on right nipple/areola junction) Visit Code: Visit Patient's Information Phone number: [phone] : 3 Para: 3 Allergies cefprozil Allergy (Mild, Verified 10/06/24 10:48) Unknown Baby's Information Baby's Age at Visit: 11.5 months Baby's Provider or Clinic: [facility] Jaundice: No Past Experience Past Experience: Yes (nursed first child for 15 months) Current Frequency of Day Feedings: 4x/day Frequency of Night Feedings: 2x/noc Both Breasts: Yes Suck: strong Latch: shallow Length of Time: 5-10 minutes Goals: one year, beyond as baby desires Pumping Pumping: No Supplementing EBM Supplement: No Formula Supplement: No Breast/Nipple Condition Breast Information: Breasts are symmetrical with rounded lower quadrants, intramammary distance is less than 1.5 inches. No erythema. Nipples are supple, everted prior to feeding. Right nipple has 2mm cut at the 11 o'clock position from baby's teeth Left nipple intact Breast Shape: Round Engorgement: No Maternal Nipple Condition - Left: Common Nipple Maternal Nipple Condition - Right: Common Nipple Sore Nipples: Yes Baby Assessment Skin: Normal Tongue/frenulum: Normal/elastic Palate: Average Lips: Relaxed and Symmetrical Jaw Alignment: Symmetrical Mucosa: [place], moist Onsite Observation Pre-Feed weight: 8.25 kg Position: [place] Attachment/latch-on achieved: Easily (to mom's left side) Suck pattern: Other (baby on and off the breast repeatedly and pulls mom's nipple with her as she's unlatching; even when on has a very shallow latch barely beyond the nipple) Swallow: Audible, consistent Behavior following feed: Alert, content Assessments/Interventions Assessments/Interventions: Discussed tugging/pulling behavior to left nipple likely causing microabrasions and adding to pain in addition to small cut on right nipple. Nursing behavior modifications to try: Minimize distractions to prevent tugging/pulling on nipple Back to basics of deep latch, holding Bethany close to chest so she can't pull on mom's nipple; she'll need to unlatch if she wants to come off. When nursing Bethany on right breast, try different position to prevent irritation/pressure on wound Could also try only feeding Bethany on left breast for a few days and have Eliza nurse on right side to see if that allows for healing When Bethany is chewing/biting on an object (toothbrush, toy) name it so can guide her NOT to bite when nursing Nipple healing Can try parchment paper over wound for healing; if no improvement in 3-4 days recommend she try Silverettes (without any creams/ointments) to help heal more quickly Education provided: Sore nipple treatment options Follow-Up Suggested follow up: Appointment as needed Time Spent Time spent with patient (min): 45 Meds Home Medications and Allergies Home Medications ?Medication ?Instructions ?Recorded ?Confirmed ?Type PNV no.151-iron 27 mg-folic 800 1 cap PO QDAY 09/07/23 10/06/24 History [id number] 260 [id number]-fish capsule ( Multi-DHA (with vitamin K)) levonorgestrel (Mirena) 1 device intrauterine ONCE 01/07/24 10/06/24 History Allergies Allergy/AdvReac Type Severity Reaction Status Date / Time cefprozil Allergy Mild Unknown Verified 10/06/24 10:48
== END 2024-10-06 09:11 | disposition home or self-care (01) ==
PROVIDERS: Visit Provider Obstetrics & Gynecology
DX: R10.2 Pelvic and perineal pain (principal); N83.201 Unspecified ovarian cyst, right side; Z39.1 Encounter for care and examination of lactating mother
CPT/HCPCS: 76830; 76856; 93976; G0463